=== PATIENT | male | born 1995 | race Caucasian/White ===

== ENCOUNTER 2016-05-28 16:35 | Emergency (ER) | payer BC ==
[~2016-05-28] VITALS: Ht 177.8 cm; Wt 76.3 kg
[2016-05-28 16:46] VITALS: Ht 177.8 cm; Wt 76.3 kg
[2016-05-28] MEDS ORDERED: KETOROLAC TROMETHAMINE 30 MG/ML VIAL IV STA (17:58)
[2016-05-28] MEDS ORDERED: ONDANSETRON INJ 2 MG/ML 2 ML VIAL IV STA (17:58)
[2016-05-28] MEDS ORDERED: SODIUM CHLORIDE 0.9% 1000ML 1,000 ML IV STA (17:58)
[2016-05-28 18:49] LABS: BASO % 0.3 %; BASO ABS # 0.02 K/uL (0-0.2); COMPLETE YES; EOS % 0.5 %; HEMATOCRIT 43.3 % (42-52); IG% 0.1 %; LYMPH % 11.6 %; LYMPH ABS # 0.91 K/uL (1.2-3.4); MEAN CELL VOLUME 81.4 fL (80-100); MEAN CORPUSCULAR HEMOGLOBIN 29.5 pg (25-34); MEAN CORPUSCULAR HGB CONC 36.3 g/dl (32-36); MONO % 17.3 %; NEUT % 70.2 %; PLATELET COUNT 204 K/uL (130-400); RED BLOOD COUNT 5.32 M/uL (4.7-6.1); WHITE BLOOD COUNT 7.82 K/uL (4.8-10.8)
[2016-05-28 19:01] LABS: BUN/CREATININE RATIO 10.3 (10-20); CALCIUM 8.4 mg/dl (8.5-10.1); CREATININE 1.2 mg/dl (0.60-1.40)
[2016-05-28] MEDS ORDERED: MULT-506 PO (19:04)
[2016-05-28] MEDS ORDERED: MISCCAP80 PO (19:04)
[2016-05-28] MEDS ORDERED: PROM25TA9 PO (19:48)
[2016-05-28 20:34] VITALS: BP 92/52; PULSE 74; TEMP 36.9; O2SAT 97
--- NOTE | 2016-05-28 22:20 | EMERGENCY ROOM VISIT NOTE ---
History First contact with patient: 17:51 Chief Complaint: VOMITING Stated Complaint: VOMITING/DIAHRREA Nursing Triage Summary: Vomiting and diarrhea since yesterday AM History of Present Illness The patient is a 21 year old male who presents to the Emergency Room with complaints of nausea, vomiting and profuse watery diarrhea since yesterday morning. The patient also complains of mild generalized abdominal cramping. He denies any known sick contacts or recent foreign travel. She initially thought that his symptoms were from eating undercooked chicken 2 days ago. He denies any fever or blood in the diarrhea. He also denies any other recent infections, chest pain, shortness of breath or urinary symptoms. He rates his overall discomfort a 3 out of 10. The patient has been unable to keep hydrated. He also attempted to eat some peanut butter crackers this afternoon, without success. Review of Systems HEENT: Denies dizziness, visual problems, hearing loss, tinnitus. Denies difficulty swallowing or oral lesions. PULMONARY: Denies cough, shortness of breath, sputum production or hemoptysis. CARDIOVASCULAR: Denies chest pain, palpitations, dyspnea on exertion, orthopnea or peripheral edema. GASTROINTESTINAL: See history of present illness. GENITOURINARY: Denies dysuria, frequency, urgency or nocturia. NEUROLOGIC: Denies history of epilepsy, CVA, TIA or chronic headaches. MUSCULOSKELETAL: Denies history of joint tenderness/swelling. SKIN: Denies rashes or lesions. PSYCHIATRIC: Denies history of depression or mental illness. ENDOCRINE: Denies history of diabetes or thyroid disorders. Past Medical/Surgical History Medical Problems: (1) No significant past medical history Surgical Problems: (1) No history of previous surgery Family History Unremarkable Social History Smoking Status: Never Smoker Alcohol Use: occasionally Marital Status: single Occupation Status: [employer] student Current/Historical Medications Scheduled Multivitamin (Multivitamin), 1 TAB PO DAILY Probiotic Product (Probiotic), 1 CAP PO DAILY Scheduled PRN Promethazine Hcl (Phenergan), 25 MG PO Q6H PRN for Nausea Allergies Coded Allergies: Apple (Unverified Allergy, Unknown, THROAT SWELLING, 05/28/16) Montiel (Unverified Allergy, Unknown, THROAT SWELLING, 05/28/16) Physical Exam Vital Signs Date Time Temp Pulse Resp B/P Pulse Ox O2 Delivery O2 Flow Rate FiO2 05/28/16 20:34 36.9 74 20 92/52 97 05/28/16 20:34 74 92/52 97 Room Air 05/28/16 18:32 80 20 90/45 95 Room Air 05/28/16 16:46 36.9 95 17 113/73 96 Room Air Physical Exam CONSTITUTIONAL: Healthy and well nourished. Alert and oriented X 3 with positive affect. Vision does not appear in any significant distress. HEENT: Normocephalic, atraumatic. Pupils equal, round and reactive. Ears and nares are clear. No scleral icterus or conjunctival injection/pallor. OROPHARYNX: Mucous membranes are dry. No posterior pharyngeal erythema, tonsillar hypertrophy or exudates. NECK: Full active range of motion without discomfort. No nuchal rigidity. RESPIRATORY: Clear to auscultation bilaterally with no wheezing, crackles, rhonchi or stridor. CARDIOVASCULAR: Regular rate and rhythm with no murmurs, rubs or gallops. GASTROINTESTINAL: Bowel sounds present in all quadrants. Patient has generalized nonfocal tenderness to palpation of the abdomen without rigidity, guarding or rebound. Negative CVA tenderness. Negative McBurney's point tenderness. MUSCULOSKELETAL: Full range of motion of all joints without discomfort. INTEGUMENTARY: No rash or other significant dermatologic conditions noted. HEMATOLOGIC: No ecchymosis or petechiae noted. NEUROLOGIC: No focal neurologic deficits noted. Medical Decision & Procedures Laboratory Results 05/28/16 18:30 Red Blood Count 5.32, Mean Corpuscular Volume 81.4, Mean Corpuscular Hemoglobin 29.5, Mean Corpuscular Hemoglobin Concent 36.3, Mean Platelet Volume 9.0, Neutrophils (%) (Auto) 70.2, Lymphocytes (%) (Auto) 11.6, Monocytes (%) (Auto) 17.3, Eosinophils (%) (Auto) 0.5, Basophils (%) (Auto) 0.3, Neutrophils # (Auto ) 5.49, Lymphocytes # (Auto) 0.91, Monocytes # (Auto) 1.35, Eosinophils # (Auto ) 0.04, Basophils # (Auto) 0.02 05/28/16 18:30 Test 05/28/16 18:30 White Blood Count 7.82 K/uL (4.8-10.8) Red Blood Count 5.32 M/uL (4.7-6.1) Hemoglobin 15.7 g/dL (14.0-18.0) Hematocrit 43.3 % (42-52) Mean Corpuscular Volume 81.4 fL (80-100) Mean Corpuscular Hemoglobin 29.5 pg (25-34) Mean Corpuscular Hemoglobin Concent 36.3 g/dl (32-36) Platelet Count 204 K/uL (130-400) Mean Platelet Volume 9.0 fL (7.4-10.4) Neutrophils (%) (Auto) 70.2 % Lymphocytes (%) (Auto) 11.6 % Monocytes (%) (Auto) 17.3 % Eosinophils (%) (Auto) 0.5 % Basophils (%) (Auto) 0.3 % Neutrophils # (Auto) 5.49 K/uL (1.4-6.5) Lymphocytes # (Auto) 0.91 K/uL (1.2-3.4) Monocytes # (Auto) 1.35 K/uL (0.11-0.59) Eosinophils # (Auto) 0.04 K/uL (0-0.5) Basophils # (Auto) 0.02 K/uL (0-0.2) RDW Standard Deviation 35.7 fL (36.4-46.3) RDW Coefficient of Variation 12.0 % (11.5-14.5) Immature Granulocyte % (Auto) 0.1 % Immature Granulocyte # (Auto) 0.01 K/uL (0.00-0.02) Anion Gap 7.0 mmol/L (3-11) Est Creatinine Clear Calc Drug Dose 99.7 ml/min Estimated GFR () 98.9 Estimated GFR (Non- 85.3 BUN/Creatinine Ratio 10.3 (10-20) Calcium Level 8.4 mg/dl (8.5-10.1) Total Bilirubin 0.9 mg/dl (0.2-1) Direct Bilirubin 0.2 mg/dl (0-0.2) Aspartate Amino Transf (AST/SGOT) 14 U/L (15-37) Alanine Aminotransferase (ALT/SGPT) 21 U/L (12-78) Alkaline Phosphatase 52 U/L (45-117) Total Protein 7.2 gm/dl (6.4-8.2) Albumin 3.8 gm/dl (3.4-5.0) Lipase 98 U/L (73-393) The above labs were reviewed, and were grossly normal. Medications Administered Medications (Trade) Dose Ordered Sig/Mario Route Start Time Stop Time Status Last Admin Dose Admin Ketorolac Tromethamine 30 mg 30 mg NOW STAT IV 05/28/16 17:58 2 18:00 DC 05/28/16 18:29 30 MG Sodium Chloride (Nss 1000ml) 1,000 ml @ 999 mls/hr Q1H1M STAT IV 05/28/16 17:58 05/28/16 18:58 DC 05/28/16 18:29 999 MLS/HR Ondansetron HCl (Zofran Inj) 4 mg NOW STAT IV 05/28/16 17:58 05/28/16 18:00 DC 05/28/16 18:29 4 MG Procedure 1. IV hydration: The patient received a liter normal saline bolus 2. IV medications: Toradol 30 mg and Zofran 4 mg IVP ED Course Patient history and physical exam were performed. Nurse's notes were reviewed. Vital signs were reviewed and were normal. Gastroenteritis is suspected. IV access was established, and labs were drawn. The patient was hydrated with normal saline, and received IV medications as discussed in the previous Procedure section. Review of labs showed no significant abnormalities, including electrolyte imbalance. No leukocytosis noted. The patient did report significant relief of his symptoms. He was tolerating by mouth fluids prior to discharge. The patient was instructed to remain well- hydrated. Tylenol as needed for any pain. The patient was provided a prescription for Phenergan as needed for nausea. Return to the emergency department for any persistent vomiting or inability to remain hydrated. Otherwise, the patient may follow-up with [facility] as needed. The patient was happy with plan of care, voiced understanding of all discharge instructions, and denied any significant symptoms at the time of discharge. Medical Decision Patient presents to the emergency department with symptoms most consistent with gastroenteritis. He has had notable nausea, vomiting and watery diarrhea. I do not suspect food poisoning as the patient has not had any fever or blood in his stools. Certainly a bacterial infection is possible. Clinical exam does not suggest peritonitis, appendicitis or pyelonephritis. Impression Primary Impression: Gastroenteritis Departure Information Prescriptions Promethazine Hcl (Phenergan) 25 Mg Tab 25 MG PO Q6H Y for Nausea, #10 TAB Prov: [place], Christopher Garth,PA 05/28/16 Referrals No Doctor, Assigned (PCP) Patient Instructions [facility]
== END 2016-05-28 20:35 | disposition home or self-care (01) ==
LOC: C.EDB 16:37 → C.EDA 20:35
DX: K52.9 Noninfective gastroenteritis and colitis, unspecified (principal)